=== PATIENT | female | born 1975 | race African-American/Black ===

== ENCOUNTER 2019-06-10 09:29 | Inpatient (IN) | payer OTHER ==
[~2019-06-10] VITALS: Ht 170.2 cm; Wt 83.0 kg
[2019-06-10] MEDS ORDERED: PRENATAL TABLE1 EAC4 PO (13:25)
[2019-06-12] MEDS ORDERED: IBUPROFEN800 MG PO (12:53)
[2019-06-12] MEDS ORDERED: Tylenol Extra Streng PO (12:53)
== END 2019-06-12 13:18 | disposition home or self-care (01) | DRG 807 ==
LOC: LDR 09:29 → OB/GYN 20:05
PROVIDERS: ADMIT Obstetrics & Gynecology
PROC: 10E0XZZ Delivery of Products of Conception, External Approach (ICD-10-PCS; principal; 2019-06-10)
PROC: 3E033VJ Introduction of Other Hormone into Peripheral Vein, Percutaneous Approach (ICD-10-PCS; 2019-06-10)
PROC: 4A1HXCZ Monitoring of Products of Conception, Cardiac Rate, External Approach (ICD-10-PCS; 2019-06-10)
DX: O80 Encounter for full-term uncomplicated delivery (principal); Z37.0 Single live birth; Z3A.38 38 weeks gestation of pregnancy